=== PATIENT | female | born 1960 | race Caucasian/White ===

== ENCOUNTER 2016-05-26 02:18 | Emergency (ER) | payer SELFPAY ==
[2016-05-26 03:53] LABS: % IMMATURE GRANULYOCYTES 0.2 % (0.0-1.1); ABSOLUTE IMMATURE GRANULOCYTES 0.01 10^3/uL (0.00-0.10); ADD DIFF? NO; ADD MORPH? NO; ADD SCAN? NO; ATYPICAL LYMPHOCYTE FLAG 0 (0-99); FRAGMENT RBC FLAG 0 (0-99); HEMATOCRIT 38.5 % (38.0-47.0); HEMOGLOBIN 12.5 g/dL (12.6-16.3); LEFT SHIFT FLG 0 (0-99); LIPEMIA HEMOLYSIS FLAG 80 (0-99); MEAN CELL HEMOGLOBIN 29.6 pg (27.9-34.1); MEAN CELL HEMOGLOBIN CONCENTR. 32.5 g/dL (32.4-36.7); MEAN PLATELET VOLUME 9.7 fL (8.7-11.7); PLATELET CLUMPS FLAG 0 (0-99); PLATELET COUNT 220 10^3/uL (150-400); RED BLOOD CELL COUNT 4.23 10^6/uL (4.18-5.33); RED CELL DISTRIBUTION WIDTH 13.6 % (11.5-15.2)
[2016-05-26 04:05] LABS: ANION GAP 12 mEq/L (8-16); CALCIUM 8.5 mg/dL (8.5-10.4); CARBON DIOXIDE 28 mEq/l (22-31); CHLORIDE 103 mEq/L (97-110); CREATININE 0.7 mg/dL (0.6-1.0); ETHANOL SERUM 210 mg/dL (0-10); GLOMERULAR FILTRATION RATE > 60; GLUCOSE 92 mg/dL (70-100); POTASSIUM 4.1 mEq/L (3.5-5.2); SODIUM 143 mEq/L (134-144)
[2016-05-26] MEDS ORDERED: IBUPROFEN 600 MG TAB PO ONE ×2 (04:44→04:46)
[2016-05-26 04:49] VITALS: O2SAT 91
--- NOTE | 2016-05-26 06:57 | EDPHY ---
H & P Stated Complaint: made suicidal statements after fight with boyfriend; CI Source: Patient, Police Exam Limitations: No limitations - Personal History Current Tetanus/Diphtheria Vaccine: Unsure - Medical/Surgical History Hx Asthma: No Hx Chronic Respiratory Disease: No Hx Diabetes: No Hx Cardiac Disease: No Hx Renal Disease: No Hx Cirrhosis: No Hx Alcoholism: No Hx HIV/AIDS: No Hx Splenectomy or Spleen Trauma: No Other PMH: PMHx: depression, migraines, chronic back pain, scoliosis, sacroiliitis, SBO. PSHx: R foot, R wrist, bowel Time Seen by Provider: 05/26/16 03:24 HPI/ROS: HPI The patient presents with suicidal ideation tonight. She is brought in by police on an M1 hold. She says that she was drinking alcohol tonight and got into a fight with her boyfriend of 1/2 years. She said they were both yelling and in the heat of the moment she said that she wanted to . He called 911. She has a history of depression but no prior suicide attempts. She is currently on an anti depressant. REVIEW OF SYSTEMS Constitutional: No fever, no chills. Eyes: No discharge. ENT: No sore throat. Cardiovascular: No chest pain, no palpitations. Respiratory: No cough, no shortness of breath. Gastrointestinal: No abdominal pain, no vomiting. Genitourinary: No hematuria. Musculoskeletal: No back pain. Skin: No rashes. Neurological: No headache. PMHx: Chronic low back pain, depression Soc Hx: Alcohol use PHYSICAL General Appearance: Alert, no distress Eyes: Pupils equal and round no pallor or injection ENT, Mouth: Mucous membranes moist Respiratory: There are no retractions, lungs are clear to auscultation Cardiovascular: Regular rate and rhythm Gastrointestinal: Abdomen is soft and non-tender, no masses, bowel sounds normal Neurological: A&O, moves all extremities Skin: Warm and dry, no rashes Musculoskeletal: Neck is supple non tender Extremities: symmetrical, full range of motion Psychiatric: Patient is oriented X 3, there is no agitation (Riguzzi,Brittney) Constitutional: Initial Vital Signs Temperature (C) 36.5 C 05/26/16 02:47 Heart Rate 103 H 05/26/16 02:47 Respiratory Rate 20 05/26/16 02:47 Blood Pressure 153/98 H 05/26/16 02:47 O2 Sat (%) 991 H 05/26/16 02:47 O2 Delivery Mode Room Air Allergies/Adverse Reactions: No Known Allergies Allergy (Unverified 05/26/16 02:46) Home Medications: Medication Instructions Recorded Percocet 5-325 mg Tablet 05/26/16 Venlafaxine 75MG (*) 05/26/16 Medical Decision Making ED Course/Re-evaluation: 7:00 a.m.- The patient has been stable throughout her time in the emergency room. She is awaiting mental health evaluation once she is sober. She will be signed out to the oncoming provider Dr. Muro. (Brittney Chance) This patient was turned over to me at shift change. She has woken up and she is sober. She is very regretful regarding how she acted she is not at all suicidal she would never kill herself and she blames it on getting very drunk. She will be discharged with a responsible sober alliance party (Jose Guadalupe Muro) Differential Diagnosis: This is a 55-year-old female with history of depression who presents on an M1 hold after making suicidal statements toward her boyfriend. This is in the setting of alcohol use. The patient says that she does not feel suicidal at the moment. Differential diagnosis includes alcohol intoxication, worsening depression with suicidality, polysubstance abuse. Plan for basic labs and mental health evaluation. (Brittney Chance) - Data Points Laboratory Results: Laboratory Results 05/26/16 03:45 05/26/16 03:45 05/26/16 05/26/16 03:45 02:55 WBC 5.75 10^3/uL (3.80-9.50) RBC 4.23 10^6/uL (4.18-5.33) Hgb 12.5 L g/dL (12.6-16.3) Hct 38.5 % (38.0-47.0) MCV 91.0 fL (81.5-99.8) MCH 29.6 pg (27.9-34.1) MCHC 32.5 g/dL (32.4-36.7) RDW 13.6 % (11.5-15.2) Plt Count 220 10^3/uL (150-400) MPV 9.7 fL (8.7-11.7) Neut % (Auto) 56.5 % (39.3-74.2) Lymph % (Auto) 30.3 % (15.0-45.0) [place] % (Auto) 8.3 % (4.5-13.0) Eos % (Auto) 4.0 % (0.6-7.6) Baso % (Auto) 0.7 % (0.3-1.7) Nucleat RBC Rel Count 0.0 % (0.0-0.2) Absolute Neuts (auto) 3.25 10^3/uL (1.70-6.50) Absolute Lymphs (auto) 1.74 10^3/uL (1.00-3.00) Absolute Monos (auto) 0.48 10^3/uL (0.30-0.80) Absolute Eos (auto) 0.23 10^3/uL (0.03-0.40) Absolute Basos (auto) 0.04 10^3/uL (0.02-0.10) Absolute Nucleated RBC 0.00 10^3/uL (0-0.01) Immature Gran % 0.2 % (0.0-1.1) Immature Gran # 0.01 10^3/uL (0.00-0.10) Sodium 143 mEq/L (134-144) Potassium 4.1 mEq/L (3.5-5.2) Chloride 103 mEq/L (97-110) Carbon Dioxide 28 mEq/l (22-31) Anion Gap 12 mEq/L (8-16) BUN 12 mg/dL (7-23) Creatinine 0.7 mg/dL (0.6-1.0) Estimated GFR > 60 Glucose 92 mg/dL (70-100) Calcium 8.5 mg/dL (8.5-10.4) Urine Opiates Screen NEGATIVE (NEGATIVE) Urine Barbiturates NEGATIVE (NEGATIVE) Ur Phencyclidine Scrn NEGATIVE (NEGATIVE) Ur Amphetamine Screen NEGATIVE (NEGATIVE) U Benzodiazepines Scrn NEGATIVE (NEGATIVE) Urine Cocaine Screen NEGATIVE (NEGATIVE) U Marijuana (THC) Screen NEGATIVE (NEGATIVE) Ethyl Alcohol 210 H mg/dL (0-10) Medications Given: Discontinued Medications Ibuprofen (Motrin) 600 mg PO EDNOW ONE Stop: 05/26/16 04:45 Last Admin: 05/26/16 04:48 Dose: 600 mg Departure - Departure Disposition: Home, Routine, Self-Care Clinical Impression: Suicidal ideation Alcohol intoxication Qualifiers: Complication of substance-induced condition: uncomplicated Qualifier Code: ( F10.120) Alcohol abuse with intoxication, uncomplicated Condition: Good Instructions: Alcohol Intoxication (ED) [facility]errals[facility] [Outside] - As per Instructions
[2016-05-26 07:47] VITALS: RESP 16; TEMP 98.6
[2016-05-26 08:10] VITALS: BP 106/68; PULSE 92
== END 2016-05-26 08:10 | disposition home or self-care (01) ==
DX: R45.851 Suicidal ideations (principal); F10.120 Alcohol abuse with intoxication, uncomplicated
CPT/HCPCS: 80305; G0480